=== PATIENT | female | born 1995 | race Caucasian/White ===

== ENCOUNTER 2021-08-27 04:26 | Day surgery (SDC) | payer OTHER ==
[2021-08-17 15:25] VITALS: BMI 19.8
[2021-08-27] MEDS ORDERED: LIDOCAINE HCL/PF 2% SDV 5ML VIAL ONE (07:18)
[2021-08-27] MEDS ORDERED: ONDANSETRON 4 MG/2 ML VIAL ONE (07:18)
[2021-08-27] MEDS ORDERED: DEXAMETHASONE SOD PHOSPHATE 4 MG/1 ML VIAL ONE (07:18)
[2021-08-27] MEDS ORDERED: PROPOFOL 20 ML ONE (07:19)
[2021-08-27] MEDS ORDERED: MIDAZOLAM HCL 2 MG/2 ML SINGLE DOSE VIAL ONE (07:19)
[2021-08-27] MEDS ORDERED: oxyCODONE HCL 5 MG TABLET PO PRN (09:21)
[2021-08-27] MEDS ORDERED: ONDANSETRON 4 MG/2 ML VIAL IVPUSH PRN (09:21)
[2021-08-27] MEDS ORDERED: LACTATED RINGERS SOLUTION 1,000 ML IV SCH (09:30)
[2021-08-27 10:52] VITALS: TEMP 97.6
[2021-08-27 10:54] VITALS: BP 102/65; PULSE 72
== END 2021-08-27 11:28 | disposition home or self-care (01) ==
LOC: JASU-SURG 04:26
PROVIDERS: ATTEND Student in an Organized Health Care Education/Training Program
PROC: 0U2DXHZ Change Contraceptive Device in Uterus and Cervix, External Approach (ICD-10-PCS; principal; 2021-08-27 08:00)
DX: Z30.433 Encounter for removal and reinsertion of intrauterine contraceptive device (principal)
CPT/HCPCS: 88300-TC; 94760